=== PATIENT | female | born 1960 | race Two or more races ===

== ENCOUNTER 2018-05-31 01:33 | Emergency (ER) | payer OTHER ==
[~2018-05-31] VITALS: Ht 162.6 cm; Wt 83.9 kg
[2018-05-31] MEDS ORDERED: HYDROCHLOROTHIA25 MG ORAL (02:11)
[2018-05-31] MEDS ORDERED: METFORMIN HCL500 M1 ORAL (02:11)
[2018-05-31] MEDS ORDERED: ATORVASTATIN CA40 MG ORAL (02:11)
[2018-05-31] MEDS ORDERED: SYNTHROID88 MCG ORAL (02:11)
[2018-05-31] MEDS ORDERED: ASPIR 8181 MG ORAL (02:11)
[2018-05-31] MEDS ORDERED: AMLODIPINE BESYL5 MG ORAL (02:11)
[2018-05-31] MEDS ORDERED: OMEPRAZOLE20 M2 ORAL (02:11)
[2018-05-31] MEDS ORDERED: LOSARTAN POTASS50 MG ORAL (02:11)
[2018-05-31 03:42] VITALS: BP 126/63
[2018-05-31 03:52] LABS: BASOPHILS % (AUTO) 1.7 % (0.0-2.0); EOSINOPHILS % (AUTO) 1.8 % (0.0-3.0); HEMATOCRIT 45.8 % (37.0-47.0); MEAN CORPUSCULAR VOLUME 86 FL (80-99); MONOCYTES % (AUTO) 8.1 % (1.0-10.0); NEUTROPHILS % (AUTO) 61.5 % (45.0-75.0); PLATELET COUNT 227 K/UL (150-450); RED BLOOD COUNT 5.31 M/UL (4.20-5.40); RED CELL DISTRIBUTION WIDTH 12.2 % (11.6-14.8); WHITE BLOOD COUNT 7.3 K/UL (4.8-10.8)
[2018-05-31 04:02] LABS: ANION GAP 5 mmol/L (5-15); BLOOD UREA NITROGEN 9 mg/dL (7-18); CALCIUM 9.6 MG/DL (8.5-10.1); CARBON DIOXIDE 32 MMOL/L (21-32); CHLORIDE 104 MMOL/L (98-107); CREATININE 0.8 MG/DL (0.55-1.30); POTASSIUM 3.8 MMOL/L (3.5-5.1); SODIUM 141 MMOL/L (136-145)
[2018-05-31 04:03] LABS: INR 0.9 (0.9-1.1)
[2018-05-31 04:15] LABS: ALANINE AMINOTRANSFERASE 29 U/L (12-78); ALBUMIN 3.9 G/DL (3.4-5.0); ALBUMIN/GLOBULIN RATIO 0.8 (1.0-2.7); ALKALINE PHOSPHATASE 124 U/L (46-116); ASPARTATE AMINO TRANSFERASE 19 U/L (15-37); BILIRUBIN,TOTAL 0.6 MG/DL (0.2-1.0); CREATINE KINASE 119 U/L (26-308)
--- NOTE | 2018-05-31 04:17 | Emergency Room Report ---
History of Present Illness General Chief Complaint: Chest Pain Source: Patient Present Illness HPI Patient was feeling anxious and started having chest pain and palpitations. Also her blood pressure was somewhat elevated at that time. She has diabetes and hypertension. She's worried about her heart and came to the emergency department. Waiting the emergency department she started to feel better and the pain is now resolved. Also her blood pressure somewhat better. She did take her blood pressure medication and also 81 mg aspirin earlier. The patient is feeling stressed because her family member is in the hospital at this time. The patient does not feel fevers and has no productive cough at this time. Recent treadmill which was "normal" and "good". 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 Last Menstrual Period: n/a Reviewed Nursing Documentation: PMH: Agreed; PSxH: Agreed Nursing Documentation-PMH Past Medical History: No History, Except For Hx Hypertension: Yes Hx Diabetes: Yes - dm2 Review of Systems All Other Systems: negative except mentioned in HPI Physical Exam Vital Signs Date Time Temp Pulse Resp B/P (MAP) Pulse Ox O2 Delivery O2 Flow Rate FiO2 05/31/18 01:39 98.1 64 16 196/94 98 Room Air 98.1 Sp02 EP Interpretation: reviewed, normal General Appearance: well appearing, no apparent distress, GCS 15 Head: normocephalic, atraumatic Eyes: bilateral eye normal inspection ENT: moist mucus membranes Neck: supple Respiratory: lungs clear, normal breath sounds Cardiovascular #1: regular rate, rhythm Cardiovascular #2: 2+ radial (R) Gastrointestinal: normal inspection, normal bowel sounds, non tender, no mass, non-distended Musculoskeletal: back normal, gait/station normal, normal range of motion Neurologic: alert, oriented x3 Skin: normal inspection, warm/dry Medical Decision Making Diagnostic Impression: Primary Impression: Chest pain Qualified Codes: R07.9 - Chest pain, unspecified Additional Impressions: Diabetes Qualified Codes: E11.9 - Type 2 diabetes mellitus without complications Hypertension Qualified Codes: I10 - Essential (primary) hypertension Dyspepsia ER Course Patient presents with anxiety and chest pain. Differential includes acute myocardial infarction, acute coronary syndrome, anxiety, left right abnormality , hypertensive urgency amongst others. The patient will be evaluated with EKG, chest x-ray and labs. The patient will be treated with Pepcid. EKG with sinus bradycardia with rate of 59, RBBB. CXR with atelectasis and inc R hilum. Patient continued pain free and BP normalized. She feels better and wants to go home. Patient stable for outpatient observation and treatment. Laboratory Tests Test 05/31/18 03:40 White Blood Count 7.3 K/UL (4.8-10.8) Red Blood Count 5.31 M/UL (4.20-5.40) Hemoglobin 15.0 G/DL (12.0-16.0) Hematocrit 45.8 % (37.0-47.0) Mean Corpuscular Volume 86 FL (80-99) Mean Corpuscular Hemoglobin 28.2 PG (27.0-31.0) Mean Corpuscular Hemoglobin Concent 32.7 G/DL (32.0-36.0) Red Cell Distribution Width 12.2 % (11.6-14.8) Platelet Count 227 K/UL (150-450) Mean Platelet Volume 8.3 FL (6.5-10.1) Neutrophils (%) (Auto) 61.5 % (45.0-75.0) Lymphocytes (%) (Auto) 27.0 % (20.0-45.0) Monocytes (%) (Auto) 8.1 % (1.0-10.0) Eosinophils (%) (Auto) 1.8 % (0.0-3.0) Basophils (%) (Auto) 1.7 % (0.0-2.0) Prothrombin Time 10.0 SEC (9.30-11.50) Prothrombin Time INR 0.9 (0.9-1.1) PTT 27 SEC (23-33) Sodium Level 141 MMOL/L (136-145) Potassium Level 3.8 MMOL/L (3.5-5.1) Chloride Level 104 MMOL/L (98-107) Carbon Dioxide Level 32 MMOL/L (21-32) Anion Gap 5 mmol/L (5-15) Blood Urea Nitrogen 9 mg/dL (7-18) Creatinine 0.8 MG/DL (0.55-1.30) Estimate Glomerular Filtration Rate > 60 mL/min (>60) Glucose Level 115 MG/DL (74-106) H Calcium Level 9.6 MG/DL (8.5-10.1) Total Bilirubin 0.6 MG/DL (0.2-1.0) Aspartate Amino Transferase (AST) 19 U/L (15-37) Alanine Aminotransferase (ALT) 29 U/L (12-78) Alkaline Phosphatase 124 U/L (46-116) H Total Creatine Kinase 119 U/L (26-308) Troponin I 0.000 ng/mL (0.000-0.056) Pro-B-Type Natriuretic Peptide 79 pg/mL (0-125) Total Protein 8.6 G/DL (6.4-8.2) H Albumin 3.9 G/DL (3.4-5.0) Globulin 4.7 g/dL Albumin/Globulin Ratio 0.8 (1.0-2.7) L EKG Diagnostic Results Rate: normal Rhythm: NSR ST Segments: no acute changes - RBBB Rhythm Strip Diag. Results EP Interpretation: yes Rhythm: NSR, no PVC's, no ectopy Chest X-Ray Diagnostic Results Chest X-Ray Diagnostic Results : Chest X-Ray Ordered: Yes Indication: Chest Pain Interpretation: other - scarring and inc R hilum Impression: Other Electronically Signed by: Electronically signed by Keith Gustafson MD Last Vital Signs Date Time Temp Pulse Resp B/P (MAP) Pulse Ox O2 Delivery O2 Flow Rate FiO2 05/31/18 05:30 97.0 58 18 134/58 98 Room Air 97.0 Status: improved Disposition: HOME, SELF-CARE Condition: Improved Scripts Lorazepam* (ATIVAN*) 0.5 Mg Tablet 0.5 MG ORAL THREE TIMES A DAY for 10 Days, TAB Prov: Keith Gustafson M.D. 05/31/18 Famotidine (PEPCID AC) 20 Mg Tablet 20 MG PO DAILY, #20 TAB Prov: Keith Gustafson M.D. 05/31/18 Referrals: NON PHYSICIAN (PCP) Keith Gustafson M.D. May 31, 2018 04:17
[2018-05-31 05:15] VITALS: BP 134/58
[2018-05-31] MEDS ORDERED: PEPCID AC20 M2 PO (05:17)
[2018-05-31] MEDS ORDERED: ATIVAN0.5 MG ORAL (05:17)
[2018-05-31 05:30] VITALS: BP 134/58
--- NOTE | 2018-05-31 10:11 | Diagnostic Imaging Report ---
Indication: Chest pain Comparison: None A single view chest radiograph was obtained. Findings: Cardiomediastinal appearance is within normal limits for age. Pulmonary vascularity is appropriate. The diaphragmatic contour is smooth and costophrenic angles are sharp. No pleural effusions are identified. The bones are unremarkable. Impression: No acute findings
--- NOTE | 2018-05-31 16:38 | Cardiology Report ---
APPROVED REPORT EKG Measurement Heart [id number] Sinus bradycardia Right bundle branch block Abnormal ECG
== END 2018-05-31 05:30 | disposition home or self-care (01) ==
LOC: EMR 03:17
DX: R07.9 Chest pain, unspecified (principal); E11.9 Type 2 diabetes mellitus without complications; I10 Essential (primary) hypertension; R10.13 Epigastric pain
CPT/HCPCS: 36415; 71045; 80053; 82550; 83880; 84484; 85025; 85610; 85730; 93005; 99283

== ENCOUNTER 2018-09-29 00:05 | Emergency (ER) | payer OTHER ==
[~2018-09-29] VITALS: Ht 165.1 cm; Wt 79.4 kg
[~2018-09-29 00:05] MED LIST: AMLODIPINE BESYL5 MG ORAL; ASPIR 8181 MG ORAL; ATIVAN0.5 MG ORAL; ATORVASTATIN CA40 MG ORAL; HYDROCHLOROTHIA25 MG ORAL; LOSARTAN POTASS50 MG ORAL; METFORMIN HCL500 M1 ORAL; OMEPRAZOLE20 M2 ORAL; PEPCID AC20 M2 PO; SYNTHROID88 MCG ORAL
[2018-09-29 00:40] VITALS: BP 134/85
[2018-09-29] MEDS ORDERED: Pantoprazole Inj IVP ONE (00:45)
[2018-09-29] MEDS ORDERED: Lidocaine 2% Visc 15ml soln ORAL ONE (00:45)
[2018-09-29] MEDS ORDERED: Mylanta II UD 30ml ORAL ONE (00:45)
[2018-09-29 01:08] LABS: APPEARANCE,URINE CLEAR; BASOPHILS % (AUTO) 1.1 % (0.0-2.0); BILIRUBIN, URINE NEGATIVE (NEGATIVE); COLOR,URINE PALE YELLOW; EOSINOPHILS % (AUTO) 2.7 % (0.0-3.0); GLUCOSE, URINE (UA) NEGATIVE (NEGATIVE); HEMATOCRIT 41.5 % (37.0-47.0); HEMOGLOBIN 13.6 G/DL (12.0-16.0); KETONES,URINE NEGATIVE (NEGATIVE); LEUKOCYTE ESTERASE ,URINE 1+ (NEGATIVE); LYMPHOCYTES % (AUTO) 34.4 % (20.0-45.0); MEAN CORPUSCULAR VOLUME 84 FL (80-99); MONOCYTES % (AUTO) 7.2 % (1.0-10.0); NEUTROPHILS % (AUTO) 54.6 % (45.0-75.0); NITRITE,URINE NEGATIVE (NEGATIVE); PH,URINE 7 (4.5-8.0); PLATELET COUNT 207 K/UL (150-450); PROTEIN,URINE 1+ (NEGATIVE); RED BLOOD COUNT 4.94 M/UL (4.20-5.40); RED CELL DISTRIBUTION WIDTH 11.9 % (11.6-14.8); UROBILINOGEN,URINE NORMAL MG/DL (0.0-1.0); WHITE BLOOD COUNT 8.4 K/UL (4.8-10.8)
[2018-09-29 01:21] LABS: ANION GAP 7 mmol/L (5-15); BLOOD UREA NITROGEN 10 mg/dL (7-18); CALCIUM 8.8 MG/DL (8.5-10.1); CARBON DIOXIDE 29 MMOL/L (21-32); CHLORIDE 106 MMOL/L (98-107); CREATININE 0.7 MG/DL (0.55-1.30); POTASSIUM 3.1 MMOL/L (3.5-5.1); SODIUM 142 MMOL/L (136-145)
[2018-09-29] MEDS ORDERED: cefTRIAXone 1 GM in NS 55 ML IVPB ONE (01:30)
[2018-09-29 01:34] LABS: ALANINE AMINOTRANSFERASE 25 U/L (12-78); ALBUMIN 3.4 G/DL (3.4-5.0); ALBUMIN/GLOBULIN RATIO 0.7 (1.0-2.7); ALKALINE PHOSPHATASE 122 U/L (46-116); ASPARTATE AMINO TRANSFERASE 19 U/L (15-37); BILIRUBIN,TOTAL 0.3 MG/DL (0.2-1.0); CKMB 1.4 NG/ML (0.0-3.6); CREATINE KINASE 142 U/L (26-308)
--- NOTE | 2018-09-29 01:43 | Emergency Room Report ---
History of Present Illness General Chief Complaint: Chest Pain Source: Patient Present Illness HPI Is a 58-year-old female with history of high blood pressure and GERD. She presents with chief complaint of chest pain. She was laying down when she felt burning/pain in the epigastric substernal area. No radiation. Pain was 8 out of 10. She got nervous and said that her heart was beating fast. Also said that her blood pressure was elevated. She called 911. He messed gave her aspirin and nitroglycerin. Her pain is now 4 out of 10. Similar symptom in the past. She said this been having more frequently. Last month she had stress test is negative. She also had echocardiogram that was negative. Have not seen GI for endoscopy. Allergies: Coded Allergies: No Known Allergies (Unverified , 05/31/18) Patient History Past Medical History: see triage record, old chart reviewed, HTN Past Surgical History: none Pertinent Family History: none Social History: Denies: smoking Last Menstrual Period: n/a Now: No : 3 Para: 3 Immunizations: other Reviewed Nursing Documentation: PMH: Agreed; PSxH: Agreed Nursing Documentation-PMH Past Medical History: No History, Except For Hx Hypertension: Yes Hx Diabetes: Yes - dm2 Hx Gastrointestinal Problems: Yes - GERD Review of Systems Eye: Denies: eye pain, blurred vision ENT: Denies: ear pain, nose congestion, throat swelling Respiratory: Denies: cough, shortness of breath Cardiovascular: Reports: chest pain; Denies: palpitations Gastrointestinal: Denies: abdominal pain, diarrhea, nausea, vomiting Musculoskeletal: Denies: back pain, joint pain Skin: Denies: rash Neurological: Denies: headache, numbness Endocrine: Denies: increased thirst, increased urine Hematologic/Lymphatic: Denies: easy bruising All Other Systems: negative except mentioned in HPI Physical Exam Vital Signs Date Time Temp Pulse Resp B/P (MAP) Pulse Ox O2 Delivery O2 Flow Rate FiO2 09/29/18 00:00 98.6 85 16 154/85 98 Room Air 09/29/18 00:40 99 vitals with high blood pressure Sp02 EP Interpretation: reviewed, normal General Appearance: well appearing, no apparent distress, alert Head: normocephalic, atraumatic Eyes: bilateral eye PERRL, bilateral eye EOMI ENT: hearing grossly normal, normal pharynx Neck: full range of motion, supple, no meningismus Respiratory: chest non-tender, lungs clear, normal breath sounds Cardiovascular #1: regular rate, rhythm, no murmur Gastrointestinal: normal bowel sounds, non tender, no mass, no organomegaly, no bruit, non-distended Musculoskeletal: back normal, gait/station normal, normal range of motion Psychiatric: mood/affect normal Skin: warm/dry Medical Decision Making Diagnostic Impression: Primary Impression: Chest pain Qualified Codes: R07.9 - Chest pain, unspecified Additional Impressions: Hypokalemia Hypertension Qualified Codes: I10 - Essential (primary) hypertension ER Course Patient presents with atypical chest pain. Most likely anxiety related secondary to her reflux. Heart rate normal. Blood pressure improved. Patient has no pain now. She just recently had heart attack workup last month. I see no need for repeat troponin or admission. She is otherwise low risk. May need endoscopy to rule out H. pylori or ulcer. This can be done as an outpatient. she is already on a proton pump inhibitor. Lab Results Impression labs normal EKG Diagnostic Results Rate: normal Rhythm: NSR ST Segments: no acute changes Rhythm Strip Diag. Results Rhythm Strip Time: 01:42 EP Interpretation: yes Rate: 64 Rhythm: NSR, no PVC's, no ectopy Chest X-Ray Diagnostic Results Chest X-Ray Diagnostic Results : Chest X-Ray Ordered: Yes # of Views/Limited/Complete: 1 View Indication: Chest Pain EP Interpretation: Yes Interpretation: no consolidation, no effusion, no pneumothorax, no acute cardiopulmonary disease Impression: No acute disease Electronically Signed by: Zeus Saavedra MD Last Vital Signs Date Time Temp Pulse Resp B/P (MAP) Pulse Ox O2 Delivery O2 Flow Rate FiO2 09/29/18 00:40 98.4 85 16 134/85 98 Room Air 09/29/18 00:40 99 Status: improved Disposition: HOME, SELF-CARE Condition: Stable Referrals: NOT CHOSEN IPA/,REFERRING (PCP) Patient Instructions: Nonspecific Chest Pain Additional Instructions: Follow-up your doctor within a week. You may benefit from referral to see a GI doctor for endoscopy. This may rule out ulcer, gastritis, H. pylori name a few. Return if symptoms worsen. Zeus Saavedra MD Sep 29, 2018 01:43
[2018-09-29 02:40] VITALS: BP_SYST 119; BP_SYST 130; BP_DIAS 75; BP_DIAS 83
--- NOTE | 2018-09-29 11:52 | Diagnostic Imaging Report ---
Indication: Chest pain Technique: One view of the chest Comparison: 05/31/2018 Findings: Again demonstrated is borderline cardiomegaly and right hilar vascular prominence. The lungs and pleural spaces are otherwise clear. No significant interim change Impression: No acute process
--- NOTE | 2018-09-30 16:35 | Cardiology Report ---
APPROVED REPORT EKG Measurement Heart [id number] Normal sinus rhythm Right bundle branch block Abnormal ECG
== END 2018-09-29 02:40 | disposition home or self-care (01) ==
LOC: EDBD 00:05 → EMR 00:53
DX: R07.89 Other chest pain (principal); E87.6 Hypokalemia; I10 Essential (primary) hypertension; E11.9 Type 2 diabetes mellitus without complications; K21.9 Gastro-esophageal reflux disease without esophagitis
CPT/HCPCS: 36415; 71045; 80053; 81003; 82550; 82553; 84484; 85025; 87086; 87181; 93005; 96361; 96365; 96375; 99284; C9113; J0696; J8499